=== PATIENT | female | born 1990 | race African-American/Black ===

== ENCOUNTER 2018-02-28 10:30 | Emergency (ER) | payer OTHER, SELFPAY ==
[2018-02-28] MEDS ORDERED: Cyclobenzaprine 10 MG TAB ONE (11:55)
[2018-02-28] MEDS ORDERED: Ketorolac Tromethamine 60 MG/2 ML VIAL ONE (11:55)
== END 2018-02-28 12:18 | disposition home or self-care (01) ==
LOC: ERS 10:30
DX: S16.1XXA Strain of muscle, fascia and tendon at neck level, initial encounter (principal); F17.210 Nicotine dependence, cigarettes, uncomplicated; X50.9XXA Other and unspecified overexertion or strenuous movements or postures, initial encounter
CPT/HCPCS: 96372; J1885